=== PATIENT | female | born 1990 | race Caucasian/White ===

== ENCOUNTER 2016-12-01 07:57 | Observation (INO) | payer OTHER ==
[2016-12-01] MEDS ORDERED: ISOVUE-370 76%-LOCM 1 ML ONE ×2 (08:38)
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
[2016-12-01 09:39] LABS: #Eosinphils 0.1 thou/uL (0.0-0.7); #Monocytes 0.5 thou/uL (0.11-0.59); #Neutrophils 6.2 thou/uL (1.40-6.50); %Basophils 0.6 % (0.0-1.0); %Eosinophils 0.8 % (0.0-10.0); %Lymphocytes 12.7 % (21.0-51.0); Hematocrit 47.1 % (36.0-47.0); Mean Platelet Volume 6.9 fL (7.4-10.4); Red Blood Cell (RBC) Count 4.74 mill/uL (4.20-5.40); White Blood Cell (WBC) Count 7.8 thou/uL (4.8-10.8)
[2016-12-01 09:41] LABS: PTT 22.9 SEC (22.9-36.1); Prothrombin Time 12.4 SEC (12.0-14.7)
[2016-12-01 09:46] LABS: ALT (SGPT) 26 U/L (8-55); AST (SGOT) 42 U/L (5-34); Alkaline Phosphatase 70 U/L (40-150); Anion Gap 14 mmol/L (10-20); BUN (Urea Nitrogen) 8 mg/dL (7.0-18.7); Bilirubin, Total 0.2 mg/dL (0.2-1.2); Calc. Creatinine Clearance 0 mL/min (70-130); Calcium 8.7 mg/dL (7.8-10.44); Carbon Dioxide 26 mmol/L (22-29); Chloride 107 mmol/L (98-107); Estimated GFR-MDRD Greater than 90; Protein, Total 7.2 g/dL (6.0-8.3)
[2016-12-01 09:47] LABS: Acetaminophen Less than 6.0 mcg/mL (10.0-30.0); Salicylate Less than 8.0 mg/dL (15.0-30.0)
[2016-12-01] MEDS ORDERED: Dextrose 5% in Water 1,000 ML IV PRN (09:57)
[2016-12-01] MEDS ORDERED: Dextrose 50% Abboject 50 ML SYRINGE SLOW IVP PRN (09:57)
[2016-12-01] MEDS ORDERED: Ondansetron HCl/PF 4 MG/2 ML Vial IVP PRN (09:57)
[2016-12-01] MEDS ORDERED: Ondansetron ODT 4 MG TAB PO PRN (09:57)
[2016-12-01] MEDS: Sodium Chloride 0.9% 1,000 ML IV SCH ×2 (10:00→19:44)
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
--- NOTE | 2016-12-01 10:55 | CT ---
CT ANGIO HEAD WITH IV CONTRAST: The exam is labeled with and without; however, without contrast study was not performed. A previous without contrast study was performed earlier this morning which showed left-sided subarachnoid hemo rrhage. Postcontrast images were obtained with arterial enhancement following cerebral angio protocol with m ultiplanar reconstruction and 3D post processing. HISTORY: Followup subarachnoid hemorrhage seen in the left cerebral hemisphere and left Sylvian fissure regio n on exam performed this morning at 9:27 a.m. FINDINGS: The visualized internal carotid arteries are patent and symmetric. Anterior cerebral arteries and m iddle cerebral arteries are patent and symmetric. No evidence of aneurysmal identified. The basila r artery and posterior cerebral arteries appear unremarkable. The proximal vertebral arteries are patent and the basilar artery appears unremarkable. IMPRESSION: Unremarkable cerebral angio study. No evidence of aneurysm identified. POS: [facility]
[2016-12-01] MEDS ORDERED: Acetaminophen 500 MG TAB ONE (11:06)
[2016-12-01] MEDS ORDERED: clonazePAM 0.5 MG TAB PO PRN (11:17)
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
[2016-12-01] MEDS: Acetaminophen 500 MG TAB PO PRN (18:17)
[2016-12-01] MEDS: traMADol HCl 50 MG TAB PO PRN (19:58)
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
[2016-12-01] MEDS ORDERED: OXcarbazepine 300 MG TAB PO SCH ×2 (21:00)
[2016-12-01] MEDS ORDERED: Aripiprazole 10 MG TAB PO SCH (21:00)
[2016-12-02] MEDS: Sodium Chloride 0.9% 1,000 ML IV SCH ×2 (02:42→13:24)
[2016-12-02 07:24] LABS: Anion Gap 12 mmol/L (10-20); BUN (Urea Nitrogen) 8 mg/dL (7.0-18.7); Calc. Creatinine Clearance 14 mL/min (70-130); Calcium 8.1 mg/dL (7.8-10.44); Carbon Dioxide 26 mmol/L (22-29); Chloride 107 mmol/L (98-107); Estimated GFR-MDRD Greater than 90; Magnesium 1.5 mg/dL (1.6-2.6); Phosphorus 3.3 mg/dL (2.3-4.7)
[2016-12-02] MEDS ORDERED: Aripiprazole 10 MG TAB PO SCH (09:00)
[2016-12-02] MEDS ORDERED: Multivit, Therapeutic 1 TAB PO SCH (09:00)
[2016-12-02] MEDS ORDERED: Folic Acid 1 MG TAB PO SCH (09:00)
[2016-12-02] MEDS ORDERED: Non-Formulary Item 1 EACH (Lisdexamfetamine Dimesylate [Vyvanse] 50 MG) PO SCH (09:00)
[2016-12-02] MEDS: traMADol HCl 50 MG TAB PO PRN (09:35)
[2016-12-02] MEDS: Acetaminophen 500 MG TAB PO PRN (09:36)
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
[2016-12-02 11:55] VITALS: TEMP 98.5
[2016-12-02 18:10] VITALS: BP 112/77
== END 2016-12-02 16:00 | disposition home or self-care (01) ==
LOC: ERS 07:57 → ERHOLD 09:57 → SJJU 14:08
PROVIDERS: ADMIT Surgery; ATTEND Surgery
DX: S06.6X0A Traumatic subarachnoid hemorrhage without loss of consciousness, initial encounter (principal); F25.9 Schizoaffective disorder, unspecified; F41.0 Panic disorder [episodic paroxysmal anxiety]; M79.89 Other specified soft tissue disorders; M79.672 Pain in left foot; V43.52XA Car driver injured in collision with other type car in traffic accident, initial encounter; F10.129 Alcohol abuse with intoxication, unspecified; S00.03XA Contusion of scalp, initial encounter; M25.552 Pain in left hip; F17.200 Nicotine dependence, unspecified, uncomplicated; Z98.890 Other specified postprocedural states; Z87.81 Personal history of (healed) traumatic fracture
CPT/HCPCS: 36415; 70450; 70496; 71010; 71260; 72125; 74177; 80048; 80053; 80307; 83735; 84100; 84702; 85025; 85610; 85730; 90471; 90732; 96360; 96361; G0009; G0378; G0390

== ENCOUNTER 2017-01-04 14:52 | Outpatient (CLI) | payer OTHER ==
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
== END 2017-01-04 14:53 | disposition home or self-care (01) ==
LOC: TBSIIMAG 14:52
PROVIDERS: ATTEND Surgery
DX: S06.6X0D Traumatic subarachnoid hemorrhage without loss of consciousness, subsequent encounter (principal)
CPT/HCPCS: 70450

== ENCOUNTER 2017-02-26 13:28 | Observation (INO) | payer OTHER, SELFPAY ==
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
[2017-02-26] MEDS ORDERED: Cyclobenzaprine 10 MG TAB PO PRN (17:48)
[2017-02-26] MEDS ORDERED: Acetaminophen 500 MG TAB PO PRN (17:48)
[2017-02-26] MEDS ORDERED: Acetaminophen/Codeine 30-300mg Tablet PO PRN ×2 (17:48)
[2017-02-26 18:39] VITALS: BMI 25.4
[2017-02-26] MEDS ORDERED: OXcarbazepine 300 MG TAB PO SCH (21:00)
[2017-02-26] MEDS ORDERED: Aripiprazole 10 MG TAB PO SCH (21:00)
[2017-02-26] MEDS ORDERED: OXcarbazepine 600 MG TAB PO SCH (21:00)
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
[2017-02-27] MEDS ORDERED: (Lisdexamfetamine Dimesylate [Vyvanse] 50 MG) PO SCH (09:00)
--- NOTE | 2017-02-27 09:23 | CT ---
PRELIMINARY REPORT/[facility]/EMERGENCY AFTER HOURS PROCEDURE: EXAM: CT Head Without Intravenous Contrast CLINICAL HISTORY: 26 years old, female; Condition or disease; Other: S/P right frontal iph TECHNIQUE: Axial computed tomography images of the head/brain without intravenous contrast. COMPARISON: CT Brain WO Con 2017-02-26 13:53 FINDINGS: Brain: Previously described punctate areas in the right frontal lobe are not clearly identified No he morrhage. No significant white matter disease. No edema. Ventricles: Unremarkable. No ventriculomegaly. Bones/joints: Unremarkable. No acute fracture. Soft tissues: Unremarkable. Sinuses: Unremarkable as visualized. No acute sinusitis. Mastoid air cells: Unremarkable as visualized. No mastoid effusion. IMPRESSION: No definite acute intracranial hemorrhage detected Thank you for allowing us to participate in the care of your patient. Dictated and Authenticated by: Lokesh Perez MD 02/27/2017 4:36 AM Central Time ([place] & [place]) FINAL REPORT NONCONTRAST HEAD CT: Date: 02/27/17 HISTORY: Right frontal intraparenchymal hematoma. COMPARISON: 02/26/17. TECHNIQUE: Noncontrast head CT is performed from skull base to skull vertex. FINDINGS: This report is in agreement with the preliminary report by [facility]. No acute intracranial process. No in tracranial post-traumatic sequelae. The previously suggested hyperdensities in the right frontal subc ortical white matter are no longer evident. No areas of acute intracranial hemorrhage are appreciated . POS: [facility]
[2017-02-27 16:37] VITALS: BP 139/85; TEMP 97
== END 2017-02-27 17:55 | disposition home or self-care (01) ==
LOC: ERS 13:28 → SURG A 18:17
PROVIDERS: ADMIT Neurological Surgery; ATTEND Neurological Surgery
DX: S00.83XA Contusion of other part of head, initial encounter (principal); S06.9X9A Unspecified intracranial injury with loss of consciousness of unspecified duration, initial encounter; F10.129 Alcohol abuse with intoxication, unspecified; F31.9 Bipolar disorder, unspecified; F41.9 Anxiety disorder, unspecified; F32.9 Major depressive disorder, single episode, unspecified; F17.210 Nicotine dependence, cigarettes, uncomplicated; Z79.899 Other long term (current) drug therapy; Z98.890 Other specified postprocedural states; W07.XXXA Fall from chair, initial encounter
CPT/HCPCS: 70450; G0378

== ENCOUNTER 2017-10-09 01:35 | Emergency (ER) | payer OTHER, SELFPAY ==
[2017-10-09] MEDS ORDERED: Ketorolac Tromethamine 30 MG/ML VIAL ONE (02:24)
[2017-10-09 02:55] LABS: Bilirubin Negative (Negative); Blood, Urine Moderate (Negative); Clarity Cloudy (Clear); Glucose, Urine (Dipstick) Negative (Negative); Leukocyte Large (Negative); Nitrite Positive (Negative); Protein, Urine (Dipstick) 100 mg/dL (Neg-Trace); Specific Gravity, Urine 1.015 (1.005-1.030); Urobilinogen 0.2 mg/dL (0.2-1.0); pH, Urine 5.5 (5.0-9.0)
[2017-10-09 02:56] LABS: Pregnancy Test - Urine (BHCG) Negative (Negative); Pregu Control Background? CLEAR/WHITE (CLR/WHITE); Pregu Control Bar Appear? YES (CONTROL BAR); Specific Gravity 1.015 (1.002-1.036)
[2017-10-09 02:58] LABS: Bacteria/HPF 4+ HPF (None Seen); Hyaline Casts/LPF 0-3 HYALINE CAST LPF (0-3 Hyaline)
[2017-10-09 03:09] LABS: #Basophils 0.3 thou/uL (0.0-0.2); #Eosinphils 0.1 thou/uL (0.0-0.7); #Lymphocytes 1.4 thou/uL (1.20-3.40); #Monocytes 0.9 thou/uL (0.11-0.59); #Neutrophils 8.9 thou/uL (1.40-6.50); %Basophils 2.3 % (0.0-1.0); %Eosinophils 0.5 % (0.0-10.0); %Lymphocytes 12.2 % (21.0-51.0); %Monocytes 7.4 % (0.0-10.0); %Neutrophils 77.7 % (42.0-75.0); Mean Platelet Volume 8.1 fL (7.4-10.4); Platelet Count 276 thou/uL (130-400); RBC Distribution Width 10.1 % (11.5-14.5); Red Blood Cell (RBC) Count 4.36 mill/uL (4.20-5.40); White Blood Cell (WBC) Count 11.5 thou/uL (4.8-10.8)
[2017-10-09 03:18] LABS: Acetaminophen Less than 6.0 mcg/mL (10.0-30.0); Alcohol Less than 10 mg/dL (Less than 10); Anion Gap 16 mmol/L (10-20); BUN (Urea Nitrogen) 14 mg/dL (7.0-18.7); Calc. Creatinine Clearance 0 mL/min (70-130); Calcium 9.6 mg/dL (7.8-10.44); Carbon Dioxide 23 mmol/L (22-29); Chloride 101 mmol/L (98-107); Estimated GFR-MDRD Greater than 90; Glucose 71 mg/dL (70-105); Potassium 4.4 mmol/L (3.5-5.1); Salicylate Less than 8.0 mg/dL (15.0-30.0); Sodium 136 mmol/L (136-145)
[2017-10-09] MEDS ORDERED: cefTRIAXone\\ROCEPHIN 1 GM VIAL ONE (03:24)
[2017-10-09] MEDS ORDERED: Sodium Chloride 0.9% 100 ML ONE (03:25)
[2017-10-09 03:45] LABS: Amphetamine Detected (NotDetected); Barbiturates Screen Not Detected (NotDetected); Benzodiazepine Screen Detected (NotDetected); Cocaine Metabolite Screen Not Detected (NotDetected); Medtox Control Line Valid? VALID (VALID); Methadone Not Detected (NotDetected); Methamphetamine Detected (NotDetected); Opiate Screen Not Detected (NotDetected); Oxycodone Screen Not Detected (NotDetected); Phencyclidine (PCP) Not Detected (NotDetected); THC/Cannabinoid Screen Not Detected (NotDetected); Tricyclic Screen Not Detected (NotDetected)
== END 2017-10-09 09:36 | disposition home or self-care (01) ==
LOC: SCSER 01:35
DX: N39.0 Urinary tract infection, site not specified (principal); F30.9 Manic episode, unspecified; F17.210 Nicotine dependence, cigarettes, uncomplicated
CPT/HCPCS: 80048; 80306; 80307; 81003; 81015; 81025; 84443; 85025; 87077; 87086; 87186; 93005; 96361; 96365; 96375; J0696; J1885; J7050

== ENCOUNTER 2017-12-13 15:26 | Emergency (ER) | payer SELFPAY ==
[2017-12-13] MEDS ORDERED: Proparacaine 0.5% Opth 15 ML BOT ONE (15:45)
[2017-12-13] MEDS ORDERED: Fluorescein Opthalmic Strip ONE (15:46)
== END 2017-12-13 16:11 | disposition home or self-care (01) ==
LOC: SCSER 15:26
DX: H10.9 Unspecified conjunctivitis (principal); F41.9 Anxiety disorder, unspecified; F31.9 Bipolar disorder, unspecified; F17.210 Nicotine dependence, cigarettes, uncomplicated
CPT/HCPCS: 99283

== ENCOUNTER 2017-12-20 01:46 | Emergency (ER) | payer SELFPAY ==
[2017-12-20 03:17] LABS: Cocaine Metabolite Screen Not Detected (NotDetected); Medtox Reader # READER 1; Methamphetamine Detected (NotDetected); Phencyclidine (PCP) Not Detected (NotDetected); THC/Cannabinoid Screen Not Detected (NotDetected)
[2017-12-20 03:18] LABS: Amphetamine Detected (NotDetected); Barbiturates Screen Not Detected (NotDetected); Benzodiazepine Screen Detected (NotDetected); Medtox Control Line Valid? VALID (VALID); Methadone Not Detected (NotDetected); Opiate Screen Not Detected (NotDetected); Oxycodone Screen Not Detected (NotDetected); Tricyclic Screen Not Detected (NotDetected)
[2017-12-20 03:26] LABS: BHCG - Serum Negative (NEGATIVE); Pregs Control Background? CLEAR/WHITE (CLR/WHITE); Pregs Control Bar Appear? YES (CONTROL BAR)
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
[2017-12-20] MEDS ORDERED: ISOVUE-370 76%-LOCM 1 ML ONE (12:21)
== END 2017-12-20 05:18 | disposition home or self-care (01) ==
LOC: ERS 01:46
DX: S00.03XA Contusion of scalp, initial encounter (principal); S50.10XA Contusion of unspecified forearm, initial encounter; F17.210 Nicotine dependence, cigarettes, uncomplicated; F31.9 Bipolar disorder, unspecified; F41.9 Anxiety disorder, unspecified; Z79.899 Other long term (current) drug therapy; Y04.8XXA Assault by other bodily force, initial encounter
CPT/HCPCS: 36415; 70450; 72125; 74177; 80306; 80307; 84703

== ENCOUNTER 2017-12-21 00:27 | Emergency (ER) | payer SELFPAY | END 2017-12-21 01:00 | LOC: ERS 00:27 | DX: Z00.8 Encounter for other general examination (principal); F25.9 Schizoaffective disorder, unspecified; F31.9 Bipolar disorder, unspecified; F41.9 Anxiety disorder, unspecified; F17.210 Nicotine dependence, cigarettes, uncomplicated; F43.10 Post-traumatic stress disorder, unspecified; Z79.899 Other long term (current) drug therapy | CPT/HCPCS: 99284 ==

== ENCOUNTER 2018-01-14 12:31 | Emergency (ER) | payer SELFPAY | END 2018-01-14 13:29 | disposition home or self-care (01) | LOC: SCSER 12:31 | DX: T83.84XD Pain due to genitourinary prosthetic devices, implants and grafts, subsequent encounter (principal); F25.9 Schizoaffective disorder, unspecified; F41.9 Anxiety disorder, unspecified; F43.10 Post-traumatic stress disorder, unspecified; F31.9 Bipolar disorder, unspecified; F17.210 Nicotine dependence, cigarettes, uncomplicated | CPT/HCPCS: 99283 ==

== ENCOUNTER 2018-11-10 21:45 | Emergency (ER) | payer MEDICAID ==
[2018-11-10 22:31] LABS: #Basophils 0.1 thou/uL (0.0-0.2); #Eosinphils 0.1 thou/uL (0.0-0.7); #Lymphocytes 2.1 thou/uL (1.20-3.40); #Monocytes 0.4 thou/uL (0.11-0.59); #Neutrophils 3.7 thou/uL (1.40-6.50); %Basophils 1.6 % (0.0-1.0); %Lymphocytes 33.5 % (21.0-51.0); %Monocytes 5.6 % (0.0-10.0); %Neutrophils 58.3 % (42.0-75.0); Hemoglobin 13.5 g/dL (12.0-16.0); Mean Corpuscular HGB CONC 34.3 g/dL (32.0-36.0); Mean Corpuscular Hemoglobin 31.8 pg (27.0-31.0); Mean Corpuscular Volume 92.7 fL (78.0-98.0); Platelet Count 206 thou/uL (130-400); RBC Distribution Width 11.6 % (11.5-14.5); Red Blood Cell (RBC) Count 4.23 mill/uL (4.20-5.40); White Blood Cell (WBC) Count 6.4 thou/uL (4.8-10.8)
[2018-11-10 22:41] LABS: BHCG - Serum Negative (NEGATIVE); Pregs Control Background? CLEAR/WHITE (CLR/WHITE); Pregs Control Bar Appear? YES (CONTROL BAR)
[2018-11-10 22:44] LABS: ALT (SGPT) 21 U/L (8-55); AST (SGOT) 28 U/L (5-34); Acetaminophen Less than 6.0 mcg/mL (10.0-30.0); Albumin 4.1 g/dL (3.5-5.0); Alcohol 331 mg/dL (Less than 10); Alkaline Phosphatase 65 U/L (40-150); Anion Gap 17 mmol/L (10-20); BUN (Urea Nitrogen) 18 mg/dL (7.0-18.7); Bilirubin, Total 0.2 mg/dL (0.2-1.2); CK (CPK) 183 U/L (29-168); Calc. Creatinine Clearance 0 mL/min (70-130); Calcium 8.4 mg/dL (7.8-10.44); Carbon Dioxide 22 mmol/L (22-29); Chloride 109 mmol/L (98-107); Estimated GFR-MDRD 80; Globulin 2.9 g/dL (2.4-3.5); Glucose 104 mg/dL (70-105); Lipase 49 U/L (8-78); Potassium 3.8 mmol/L (3.5-5.1); Salicylate Less than 8.0 mg/dL (15.0-30.0); Sodium 144 mmol/L (136-145)
--- NOTE | 2018-11-10 22:51 | CT ---
CT BRAIN WITHOUT CONTRAST: 11/10/18 HISTORY: Altered mental status. FINDINGS: Comparison made with exam of 12/20/17. No evidence of acute infarct, hemorrhage, midline shift or abnormal extra-axial fluid collections are seen. The ventricular size is normal and the basilar cisterns patent. The bony calvarium is intact. The visualized paranasal sinuses and mastoid air cells are well aerated. IMPRESSION: No CT evidence of acute intracranial process. POS: [facility]
--- NOTE | 2018-11-10 23:16 | RAD ---
LEFT FOOT THREE VIEWS: 11/10/18 HISTORY: Left foot pain. FINDINGS/IMPRESSION: There are postop changes and metallic hardware in the fifth metatarsal. No acute fracture or disloca tion or bony destruction is identified. POS: [facility]
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
[2018-11-10 23:42] LABS: Bilirubin Negative (Negative); Blood, Urine Negative (Negative); Clarity Slightly Cloudy (Clear); Glucose, Urine (Dipstick) Negative (Negative); Leukocyte Negative (Negative); Nitrite Negative (Negative); Protein, Urine (Dipstick) Negative (Neg-Trace); Urobilinogen 0.2 mg/dL (Less than 2)
[2018-11-10 23:51] LABS: Amphetamine Detected (NotDetected); Barbiturates Screen Not Detected (NotDetected); Benzodiazepine Screen Not Detected (NotDetected); Cocaine Metabolite Screen Not Detected (NotDetected); Medtox Control Line Valid? VALID (VALID); Methadone Not Detected (NotDetected); Methamphetamine Detected (NotDetected); Opiate Screen Not Detected (NotDetected); Oxycodone Screen Not Detected (NotDetected); Phencyclidine (PCP) Not Detected (NotDetected); THC/Cannabinoid Screen Not Detected (NotDetected); Tricyclic Screen Detected (NotDetected)
== END 2018-11-11 08:15 | disposition home or self-care (01) ==
LOC: SCSER 21:45
DX: F10.129 Alcohol abuse with intoxication, unspecified (principal); F31.9 Bipolar disorder, unspecified; F41.9 Anxiety disorder, unspecified; F25.9 Schizoaffective disorder, unspecified; F43.10 Post-traumatic stress disorder, unspecified
CPT/HCPCS: 70450; 71045; 72170; 80053; 80306; 80307; 81003; 83690; 84443; 84703; 85025; 93005; 96360; 96361; A4353

== ENCOUNTER 2022-06-09 17:45 | Emergency (ER) | payer SELFPAY ==
[2022-06-09] MEDS ORDERED: Thiamine HCl 200 MG/2 ML VIAL SLOW IVP SCH (18:30)
[2022-06-09 19:07] LABS: #Basophils 0.1 thou/uL (0.0-0.2); #Eosinphils 0.1 thou/uL (0.0-0.7); #Monocytes 0.7 thou/uL (0.11-0.59); #Neutrophils 4.5 thou/uL (1.40-6.50); %Basophils 1.2 % (0.0-1.0); %Lymphocytes 26.7 % (21.0-51.0); %Monocytes 9.8 % (0.0-10.0); %Neutrophils 60.3 % (42.0-75.0); Mean Corpuscular HGB CONC 33.1 g/dL (32.0-36.0); Mean Corpuscular Hemoglobin 33.3 pg (27.0-31.0); Mean Platelet Volume 7.7 fL (7.4-10.4); Platelet Count 317 10x3/uL (130-400); RBC Distribution Width 13.2 % (11.5-14.5); Red Blood Cell (RBC) Count 4.49 mill/uL (4.20-5.40); White Blood Cell (WBC) Count 7.4 10x3/uL (4.8-10.8)
[2022-06-09 19:11] LABS: ALT (SGPT) 45 U/L (8-55); AST (SGOT) 46 U/L (5-34); Albumin 4.2 g/dL (3.5-5.0); Alkaline Phosphatase 80 U/L (40-110); Anion Gap 16 mmol/L (10-20); BUN (Urea Nitrogen) 6 mg/dL (7.0-18.7); Bilirubin, Total 0.3 mg/dL (0.2-1.2); Calc. Creatinine Clearance 0 mL/min (70-130); Carbon Dioxide 26 mmol/L (22-29); Chloride 102 mmol/L (98-107); Estimated GFR 119; Globulin 3.4 g/dL (2.4-3.5); Glucose 84 mg/dL (70-105); Potassium 3.5 mmol/L (3.5-5.1); Protein, Total 7.6 g/dL (6.0-8.3); Sodium 140 mmol/L (136-145)
[2022-06-09 19:20] LABS: Acetaminophen Less than 10.0 mcg/mL (10.0-30.0); Salicylate Less than 8.0 mg/dL (15.0-30.0)
[2022-06-09] MEDS ORDERED: Lidocaine 2% Viscous Solution 10 ML, Aluminum & Magnesium Hydroxide 30 ML SSW SCH (20:15)
[2022-06-09 20:19] LABS: Amphetamine Detected (NotDetected); Barbiturates Screen Not Detected (NotDetected); Benzodiazepine Screen Not Detected (NotDetected); Cocaine Metabolite Screen Not Detected (NotDetected); Methadone Not Detected (NotDetected); Methamphetamine Detected (NotDetected); Opiate Screen Not Detected (NotDetected); Oxycodone Screen Not Detected (NotDetected); Phencyclidine (PCP) Not Detected (NotDetected); THC/Cannabinoid Screen Not Detected (NotDetected); Tricyclic Screen Not Detected (NotDetected)
[2022-06-09] MEDS ORDERED: Pantoprazole 40 MG VIAL ONE (21:04)
[2022-06-09 23:14] LABS: Alcohol 230 mg/dL (Less than 10)
== END 2022-06-09 22:03 | disposition home or self-care (01) ==
LOC: ERS 17:45
DX: F10.129 Alcohol abuse with intoxication, unspecified (principal); E78.5 Hyperlipidemia, unspecified; I10 Essential (primary) hypertension; F17.200 Nicotine dependence, unspecified, uncomplicated
CPT/HCPCS: 36415; 80053; 80306; 80307; 85025; 93005; 96365; 96375; C9113; J3411

== ENCOUNTER 2024-04-19 12:16 | Emergency (ER) | payer SELFPAY ==
[2024-04-19 13:22] LABS: %Basophils 0.9 % (0.0-1.0); %Eosinophils 1.1 % (0.0-10.0); %Lymphocytes 21.8 % (21.0-51.0); %Neutrophils 67.7 % (42.0-75.0); Hematocrit 42.4 % (36.0-47.0); Hemoglobin 14.3 g/dL (12.0-16.0); Mean Corpuscular HGB CONC 33.7 g/dL (32.0-36.0); Mean Corpuscular Hemoglobin 31.2 pg (27.0-31.0); Mean Corpuscular Volume 92.6 fL (78.0-98.0); Mean Platelet Volume 10.1 fL (7.4-10.4); Platelet Count 261 10x3/uL (130-400); RBC Distribution Width 13.2 % (11.5-14.5); Red Blood Cell (RBC) Count 4.58 mill/uL (4.20-5.40)
[2024-04-19 13:40] LABS: ALT (SGPT) 30 U/L (Less than 34); AST (SGOT) 38 U/L (11-34); Albumin 3.9 g/dL (3.1-4.5); Alkaline Phosphatase 74 U/L (40-110); Anion Gap 14 mmol/L (10-20); BUN (Urea Nitrogen) 10 mg/dL (7.0-18.7); Bilirubin, Total 0.3 mg/dL (0.3-1.2); Calc. Creatinine Clearance 0 mL/min (70-130); Carbon Dioxide 24 mmol/L (22-29); Chloride 106 mmol/L (98-107); Estimated GFR 119; Globulin 3.6 g/dL (2.4-3.5); Glucose 100 mg/dL (70-105); Lipase 25 U/L (8-78); Potassium 3.9 mmol/L (3.5-5.1); Protein, Total 7.5 g/dL (6.0-8.3); Sodium 140 mmol/L (136-145)
[2024-04-19 13:56] LABS: Bacteria/HPF None Seen HPF (None Seen); Bilirubin Negative (Negative); Blood, Urine Negative (Negative); CAUTI Indications for Culture Dysuria,urgency,freq; Clarity Clear (Clear); Glucose, Urine (Dipstick) Normal (Negative); Ketone, Urine Negative (Negative); Leukocyte Negative Leu/uL (Negative); Nitrite Negative (Negative); Protein, Urine (Dipstick) Negative (Neg-Trace); RBC/HPF None Seen HPF (0-3); Specific Gravity, Urine 1.003 (1.002-1.036); Squamous Epithelial None Seen HPF (0-3); Urobilinogen Normal mg/dL (Less than 2); WBC/HPF 0-3 HPF (0-3)
[2024-04-19 14:10] LABS: Specific Gravity 1.003 (1.002-1.036); Urine Culture Reflex No No
[2024-04-19 14:14] LABS: Pregnancy Test - Urine (BHCG) Negative (Negative); Pregu Control Background? CLEAR/WHITE (CLR/WHITE); Pregu Control Bar Appear? YES (CONTROL BAR)
[2024-04-19 15:00] LABS: Acetaminophen Less than 10 mcg/mL (Less than 10); Alcohol 267.3 mg/dL (Less than 10); Salicylate Less than 8.0 mg/dL (Less than 8.0)
== END 2024-04-19 16:27 ==
LOC: ERS 12:16
DX: R10.9 Unspecified abdominal pain (principal); F19.10 Other psychoactive substance abuse, uncomplicated; F10.90 Alcohol use, unspecified, uncomplicated; I10 Essential (primary) hypertension; F17.200 Nicotine dependence, unspecified, uncomplicated
CPT/HCPCS: 36415; 74176; 80053; 80307; 81001; 81025; 83690; 85025